=== PATIENT | female | born 1990 | race Caucasian/White ===

== ENCOUNTER 2018-09-28 09:00 | Outpatient (CLI) | payer OTHER ==
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
[2018-09-28] MEDS ORDERED: Gadobenate Dimeglumine 529 MG/1 ML (20ML VIAL) ONE (16:38)
== END 2018-09-28 09:01 | disposition home or self-care (01) ==
LOC: BICMRI 09:00
PROVIDERS: ATTEND Nurse Practitioner Acute Care
DX: F07.81 Postconcussional syndrome (principal)
CPT/HCPCS: 70553; A9577